=== PATIENT | female | born 1960 | race Caucasian/White ===

== ENCOUNTER 2021-09-01 16:46 | Emergency (ER) | payer BC, OTHER ==
[~2021-09-01] VITALS: Ht 165.1 cm; Wt 93.4 kg
[2021-09-01] MEDS ORDERED: ROSUVASTATIN CA10 MG PO (17:37)
[2021-09-01] MEDS ORDERED: METFORMIN HCL500 M3 PO (17:37)
[2021-09-01] MEDS ORDERED: LEVO-T75 MCG PO (17:37)
[2021-09-01] MEDS ORDERED: SINGULAIR 10 MG10 MG PO (17:37)
[2021-09-01] MEDS ORDERED: VESICARE10 M1 PO (17:38)
[2021-09-01 19:12] VITALS: BP 142/76
== END 2021-09-01 19:14 | disposition home or self-care (01) ==
LOC: ER 16:46
DX: S00.81XA Abrasion of other part of head, initial encounter (principal); E11.9 Type 2 diabetes mellitus without complications; J45.909 Unspecified asthma, uncomplicated; Z79.84 Long term (current) use of oral hypoglycemic drugs; Z79.891 Long term (current) use of opiate analgesic; Z88.1 Allergy status to other antibiotic agents; W18.30XA Fall on same level, unspecified, initial encounter; Y93.89 Activity, other specified; Y92.89 Other specified places as the place of occurrence of the external cause; Y99.8 Other external cause status